=== PATIENT | male | born 2000 | race Caucasian/White ===

== ENCOUNTER 2018-10-18 23:17 | Emergency (ER) | payer MEDICAID ==
[2018-10-18 23:25] VITALS: BMI 27.2
[2018-10-18 23:28] VITALS: BP 149/85; PULSE 90; RESP 18; TEMP 98.7; O2SAT 99
--- NOTE | 2018-10-19 07:12 | CARD ---
APPROVED REPORT Date of service: 10/18/2018 EKG Measurement Heart [id number] <Conclusion> Normal sinus rhythm Normal ECG
== END 2018-10-19 01:00 | disposition left against medical advice (07) ==
LOC: H.ER 23:17
DX: Z02.89 Encounter for other administrative examinations (principal)